=== PATIENT | male | born 1965 | race Caucasian/White ===

== ENCOUNTER 2019-01-01 17:21 | Emergency (ER) | payer OTHER ==
--- NOTE | 2019-01-01 18:31 | CT ---
HEAD CT NONCONTRAST 01/01/19 INDICATION: Dizziness, 4 months. No prior comparison. FINDINGS: No intracranial hemorrhage, mass effect, midline shift or ventriculomegaly. Mild scattered paranasal sinus mucosal thickening is present, most notable within posterior right eth moid sinus. IMPRESSION: No acute intracranial hemorrhage or mass effect. Paranasal sinus mucosal thickening. POS: RANDY
--- NOTE | 2019-01-05 17:34 | EKG ---
Test Reason : DIZZINESS Blood Pressure : / mmHG Vent. Rate : 054 BPM Atrial Rate : 054 BPM P-R Int : 160 ms QRS Dur : 086 ms QT Int : 404 ms P-R-T Axes : 036 045 039 degrees QTc Int : 383 ms Sinus bradycardia Otherwise normal ECG Confirmed by JUNITO MTZ, PAPA Henriquez ([id number]), graphics editor BENITO GORE ([id number]) on 01/05/2019 5:34:15 PM Referred By: Confirmed By:PAPA WILD MD
== END 2019-01-01 18:57 | disposition home or self-care (01) ==
LOC: ERS 17:21
DX: R42 Dizziness and giddiness (principal); R53.1 Weakness; I10 Essential (primary) hypertension; K21.9 Gastro-esophageal reflux disease without esophagitis; F32.9 Major depressive disorder, single episode, unspecified
CPT/HCPCS: 70450; 93005

== ENCOUNTER 2019-02-21 20:30 | Outpatient (CLI) | payer OTHER | END 2019-02-21 20:31 | disposition home or self-care (01) | LOC: SLEEPLAB 20:30 | PROVIDERS: ATTEND Internal Medicine Pulmonary Disease | DX: G47.61 Periodic limb movement disorder (principal); G47.9 Sleep disorder, unspecified; R06.89 Other abnormalities of breathing; R53.82 Chronic fatigue, unspecified; G31.84 Mild cognitive impairment of uncertain or unknown etiology; E16.2 Hypoglycemia, unspecified; R06.00 Dyspnea, unspecified; R42 Dizziness and giddiness; E66.9 Obesity, unspecified; K21.9 Gastro-esophageal reflux disease without esophagitis; R06.83 Snoring; G47.00 Insomnia, unspecified; F32.9 Major depressive disorder, single episode, unspecified; R35.1 Nocturia; I10 Essential (primary) hypertension; G47.33 Obstructive sleep apnea (adult) (pediatric) | CPT/HCPCS: 95811 ==

== ENCOUNTER 2019-02-25 09:49 | Outpatient (CLI) | payer OTHER ==
[2019-02-25] MEDS ORDERED: Gadobenate Dimeglumine 529 MG/1 ML (20ML VIAL) ONE (10:12)
--- NOTE | 2019-02-25 12:08 | MRI ---
MRI BRAIN WITH AND WITHOUT IV CONTRAST: Date: 02/25/19 HISTORY: Fatigue, brain fog, cognitive problems, dizziness. FINDINGS: Correlation is made with the noncontrasted CT scan of 01/01/19. No restricted diffusion is seen. A few tiny foci of T2 prolongation are seen in the periventricular w bassam matter consistent with mild chronic small vessel ischemic disease. No evidence of infarct, hemor rhage, mass, midline shift, or abnormal extra-axial fluid collections are seen. No abnormal postcontr ast enhancement is noted. There is mucosal disease in the paranasal sinuses. There is fluid in the ma xillary sinuses and small amount of fluid in the mastoid air cells. IMPRESSION: 1. Mild chronic small vessel ischemic disease. 2. No evidence of acute intracranial process or mass. POS: TPC
== END 2019-02-25 09:50 | disposition home or self-care (01) ==
LOC: BICMRI 09:49
PROVIDERS: ATTEND Psychiatry & Neurology Neurology
DX: R53.83 Other fatigue (principal); G93.89 Other specified disorders of brain
CPT/HCPCS: 70553; 82565

== ENCOUNTER 2019-03-01 21:49 | Emergency (ER) | payer OTHER ==
[2019-03-01] MEDS ORDERED: Piperacillin/Tazobactam 4.5 GM VIAL ONE (22:56)
[2019-03-01] MEDS ORDERED: Morphine 4 MG/ML VIAL ONE (22:56)
[2019-03-01 23:14] LABS: #Eosinphils 0.1 thou/uL (0.0-0.7); #Lymphocytes 2.3 thou/uL (1.20-3.40); #Neutrophils 6.7 thou/uL (1.40-6.50); %Basophils 0.4 % (0.0-1.0); %Eosinophils 1.2 % (0.0-10.0); %Lymphocytes 22.5 % (21.0-51.0); %Monocytes 9.5 % (0.0-10.0); %Neutrophils 66.4 % (42.0-75.0); Hemoglobin 14.1 g/dL (14.0-18.0); Mean Corpuscular HGB CONC 33.9 g/dL (32.0-36.0); Mean Corpuscular Hemoglobin 30.4 pg (27.0-31.0); Mean Corpuscular Volume 89.6 fL (78.0-98.0); Mean Platelet Volume 6.9 fL (7.4-10.4); Platelet Count 214 thou/uL (130-400); RBC Distribution Width 12.7 % (11.5-14.5); Red Blood Cell (RBC) Count 4.65 mill/uL (4.70-6.10); White Blood Cell (WBC) Count 10.1 thou/uL (4.8-10.8)
[2019-03-01 23:35] LABS: ALT (SGPT) 19 U/L (8-55); AST (SGOT) 25 U/L (5-34); Albumin 3.8 g/dL (3.5-5.0); Alkaline Phosphatase 203 U/L (40-150); Anion Gap 14 mmol/L (10-20); BUN (Urea Nitrogen) 15 mg/dL (8.4-25.7); Bilirubin, Total 1.6 mg/dL (0.2-1.2); Calc. Creatinine Clearance 0 mL/min (70-130); Calcium 9.1 mg/dL (7.8-10.44); Carbon Dioxide 25 mmol/L (22-29); Chloride 101 mmol/L (98-107); Estimated GFR-MDRD 50; Glucose 227 mg/dL (70-105); Potassium 3.2 mmol/L (3.5-5.1); Protein, Total 7.8 g/dL (6.0-8.3); Sodium 137 mmol/L (136-145)
[2019-03-02] MEDS ORDERED: Lidocaine 1% (PF) 30 ML VIAL ONE (00:05)
[2019-03-02] MEDS ORDERED: Clindamycin/D5W 900 mg/50 ml Premix Bag ONE (01:17)
[2019-03-02] MEDS ORDERED: HYDROcodone/Acetaminophen 5/325 mg Tablet ONE (01:17)
== END 2019-03-02 02:38 | disposition home or self-care (01) ==
LOC: ERS 21:49
DX: L02.212 Cutaneous abscess of back [any part, except buttock and flank] (principal); I10 Essential (primary) hypertension; E78.00 Pure hypercholesterolemia, unspecified; K21.9 Gastro-esophageal reflux disease without esophagitis; Z79.899 Other long term (current) drug therapy
CPT/HCPCS: 10061; 36415; 80053; 83605; 85025; 87040; 96365; 96366; 96367; 96368; 96375; J2001; J2270; J2543; J3370; J3490

== ENCOUNTER 2019-03-26 16:16 | Observation (INO) | payer OTHER ==
[2019-03-26 16:52] LABS: #Lymphocytes 1.7 thou/uL (1.20-3.40); #Monocytes 0.5 thou/uL (0.11-0.59); #Neutrophils 5.9 thou/uL (1.40-6.50); %Basophils 0.2 % (0.0-1.0); %Eosinophils 0.3 % (0.0-10.0); %Lymphocytes 20.4 % (21.0-51.0); %Monocytes 5.7 % (0.0-10.0); %Neutrophils 73.4 % (42.0-75.0); Hemoglobin 13.5 g/dL (14.0-18.0); Mean Corpuscular HGB CONC 34.1 g/dL (32.0-36.0); Mean Corpuscular Hemoglobin 30.4 pg (27.0-31.0); Mean Corpuscular Volume 89.2 fL (78.0-98.0); Mean Platelet Volume 7.2 fL (7.4-10.4); Platelet Count 269 thou/uL (130-400); RBC Distribution Width 12.5 % (11.5-14.5); Red Blood Cell (RBC) Count 4.43 mill/uL (4.70-6.10); White Blood Cell (WBC) Count 8.1 thou/uL (4.8-10.8)
[2019-03-26 17:19] LABS: ALT (SGPT) 40 U/L (8-55); AST (SGOT) 34 U/L (5-34); Alkaline Phosphatase 238 U/L (40-150); Anion Gap 13 mmol/L (10-20); BUN (Urea Nitrogen) 46 mg/dL (8.4-25.7); Bilirubin, Total 0.6 mg/dL (0.2-1.2); Calc. Creatinine Clearance 0 mL/min (70-130); Calcium 9.7 mg/dL (7.8-10.44); Carbon Dioxide 16 mmol/L (22-29); Chloride 111 mmol/L (98-107); Estimated GFR-MDRD 32; Globulin 4.3 g/dL (2.4-3.5); Glucose 180 mg/dL (70-105); Potassium 5.3 mmol/L (3.5-5.1); Protein, Total 8.3 g/dL (6.0-8.3); Sodium 135 mmol/L (136-145)
[2019-03-26] MEDS ORDERED: Ondansetron PF 4 MG/2 ML Vial ONE (17:19)
[2019-03-26] MEDS ORDERED: Sodium Bicarbonate 150 MEQ in Dextrose 5% in Water 1,000 ML IV ONE (18:00)
[2019-03-26] MEDS ORDERED: Atorvastatin Calcium 40 MG TAB PO SCH (21:00)
[2019-03-26 21:04] VITALS: BMI 33.7
[2019-03-26] MEDS ORDERED: Acetaminophen 325 MG TAB PO PRN (21:07)
[2019-03-26] MEDS ORDERED: Acetaminophen 650 MG Suppository PR PRN (21:07)
[2019-03-26] MEDS ORDERED: Temazepam 15 MG CAP PO PRN (21:07)
[2019-03-26] MEDS ORDERED: Ondansetron PF 4 MG/2 ML Vial IVP PRN (21:07)
[2019-03-26] MEDS ORDERED: Ondansetron ODT 4 MG TAB PO PRN (21:07)
[2019-03-26] MEDS ORDERED: Senokot S 8.6-50 MG TAB PO PRN (21:07)
[2019-03-26] MEDS ORDERED: Guaifenesin DM 100-10/5 ML UDCUP PO PRN (21:07)
[2019-03-26 21:44] LABS: Potassium 5.3 mmol/L (3.5-5.1)
[2019-03-26] MEDS: Heparin 5,000 UNITS/ML VIAL SC SCH (21:55)
--- NOTE | 2019-03-26 23:27 | ULT ---
Renal ultrasound: 03/26/2019 COMPARISON: None HISTORY: Frequent urination, flank tenderness, assess for hydronephrosis and TECHNIQUE: Multiplanar grayscale sonographic imaging of the kidneys and urinary bladder obtained. FINDINGS: Right kidney measures 10.5 cm in craniocaudal dimension and left kidney measures 10.6 cm in craniocaudal dimension. No renal mass, hydronephrosis, or renal stone noted on either side. Urinary bladder appears grossly unremarkable. IMPRESSION: No hydronephrosis.
--- NOTE | 2019-03-27 01:58 | HP ---
PRIMARY CARE PHYSICIAN: Mani Torres MD CHIEF COMPLAINT: Hyperkalemia. HISTORY OF PRESENT ILLNESS: This is a 53-year-old white male with a 6-month history of some nonspecific symptoms of dizziness, feeling groggy, having trouble speaking after a bronchitis episode. He has had negative workups with MRI. He also had some abdominal pain for a while and had a negative colonoscopy and started on PPIs with improvement in that. The patient then had an infected cyst on the back of his neck most recently and had that drained and then put on two courses of Bactrim before having the cyst cavity removed by Dr. Bernstein. The patient reports that he has been feeling very fatigued over the last few weeks. He went in to see the PA at Dr. Torres's office and had lab work done that was concerning for a possible rheumatologic problem. The patient was referred to Dr. Olivera. He was also noted to have some elevated renal function testing and so he was sent to Dr. Britt. The patient saw Dr. Olivera yesterday and was told to go and see Dr. Britt today. He was started on prednisone yesterday. Today, he went to Dr. Britt's office. There, he was noted to have a potassium of 6.2, and so he was sent emergently to the emergency room. In the ER here, his potassium was 5.3, creatinine was up to 2.19. Dr. Britt was notified and asked to have the patient admitted along with giving him Kayexalate and dextrose solution with sodium bicarbonate. The patient has also had some nausea on and off for the last few days to weeks and some vomiting intermittently, most recently yesterday morning. The patient's other notable symptoms are for the last few weeks, the patient has been having migratory arthralgias especially in his hands, but also in the other joints throughout his body. PAST MEDICAL HISTORY: 1. Hypertension. 2. Hyperlipidemia. 3. Gastroesophageal reflux disease. PAST SURGICAL HISTORY: Cyst removal in the back of his neck. PSYCHIATRIC HISTORY: Depression. SOCIAL HISTORY: The patient used to abuse alcohol, quit in May 13, 2018. He was a previous smoker, quit 6 months ago when he started getting sick. He smoked half pack of cigarettes per day. The patient did use methamphetamines and weed when he was much younger, but nothing in the recent years. He is . FAMILY HISTORY: Mother had Guillain-Pierce syndrome, emphysema, and breast cancer. Sister had breast cancer. Dad had a CABG and valve replacement at 75 years old and brother had non-Hodgkin's lymphoma. ALLERGIES: NO KNOWN DRUG ALLERGIES. CURRENT MEDICATIONS: 1. Lisinopril 20 mg daily. 2. Atorvastatin 40 mg daily. 3. Restoril 30 mg at night. 4. Omeprazole 40 mg daily as needed. 5. Prednisone 10 mg daily, started yesterday. REVIEW OF SYSTEMS: CONSTITUTIONAL: No fevers, no chills. He has had generalized fatigue and a heavy feeling in his head. EYES: No double vision or blurred vision. ENT: He has had some continuous drainage and congestion for the last 6 months, some intermittent pain in the lymph nodes of his neck, but no sore throat anteriorly. CARDIOVASCULAR: No chest pain. No palpitations or racing heart. PULMONARY: No recent coughing, wheezing, or shortness of breath. GASTROINTESTINAL: The patient does have some difficulty swallowing, though it seems to be more that he constantly has post nasal drainage and is constantly trying to swallow throughout the day, but he is able to eat normally. No current abdominal pain, nausea, or vomiting as per HPI. No diarrhea or constipation. GENITOURINARY: No dysuria or hematuria. No changes to his urine character. MUSCULOSKELETAL: See HPI. SKIN: The patient has had some scattered red papules on his trunk and his extremities for the last couple of weeks. It has been since he was on the Bactrim course for a long period of time. NEUROLOGIC: No numbness, tingling, or focal weakness, but he did have the dizziness and heavy feeling in his head, sometimes trouble concentrating and trouble speaking clearly, though he has not had any trouble right now. PHYSICAL EXAMINATION: VITAL SIGNS: Blood pressure 145/68, pulse 72, respirations 18, temperature 98.5 , O2 saturation 96% on room air. GENERAL: This is a well-developed, well-nourished white male, in no acute distress. HEENT: Pupils equal, round, and reactive to light. Oropharynx is clear without lesions, erythema, or exudate. NECK: Supple. No lymphadenopathy. No thyroid nodules or enlargement. No JVD. HEART: Regular rate and rhythm. No murmurs, rubs, or gallops. LUNGS: Clear to auscultation bilaterally. No wheezes, crackles, or rhonchi. ABDOMEN: Soft, nontender to palpation. Normoactive bowel sounds. No hepatosplenomegaly or other masses. EXTREMITIES: No clubbing, cyanosis, or edema. The patient does state he used to have some edema, but he was given some fluid pills at some point that has resolved that. SKIN: The patient has a scattered red papular rash, very sparse, mostly on his trunk, not excoriated or itching, nontender to palpation. NEUROLOGIC: Intact strength and sensation in all extremities. No facial droop. PSYCHIATRIC: Alert oriented x3. Normal mood and affect. LABORATORY DATA: CBC with a hemoglobin 13.5, hematocrit 39.5, the rest was normal. Complete metabolic panel was notable for a sodium of 135, potassium 5.3, chloride is 111, carbon dioxide is 16, BUN is 46, creatinine is 2.19, it was 2.35 on the 2nd of this month and it was 1.48 at the end of last month; glucose of 180, alkaline phosphatase of 238. The rest of his CMP was normal. EKG done in the emergency room showed normal sinus rhythm at 70 beats per minute without any T-wave peaking or other abnormalities. ASSESSMENT: 1. Acute worsening of renal failure with hyperkalemia. The patient has received Kayexalate and bicarbonate here in the emergency room. He is not having any symptoms currently from the hyperkalemia and his EKG shows no changes. We will put the patient on observation, on telemetry. He had Dr. Britt in consult and we will recheck potassium in the morning. I expect it will most likely be back down to normal. We will defer to Dr. Britt for further workup for his renal failure. I suspect that there may be an autoimmune condition going on versus a reaction to the prolonged Bactrim course. 2. Hypertension. We will hold the patient's lisinopril due to hyperkalemia and worsening renal failure. We will monitor closely and start other antihypertensives as needed. 3. Hyperlipidemia. We will resume the patient's atorvastatin. 4. Gastroesophageal reflux disease. We will resume the patient's proton pump inhibitor. 5. Deep venous thrombosis prophylaxis. We will put the patient on heparin subcu and SCDs while in bed. 6. Code status. I did discuss this with the patient. He states he is a full code. Should he be incapacitated, his medical decision maker would be his , Jaida Jimenez as well his sister, Shira Centeno. Job ID: [id number] MTDD
[2019-03-27 06:21] LABS: #Basophils 0.1 thou/uL (0.0-0.2); #Eosinphils 0.2 thou/uL (0.0-0.7); #Lymphocytes 3.3 thou/uL (1.20-3.40); #Monocytes 1.1 thou/uL (0.11-0.59); #Neutrophils 5.7 thou/uL (1.40-6.50); %Basophils 0.9 % (0.0-1.0); %Eosinophils 1.8 % (0.0-10.0); %Lymphocytes 32.3 % (21.0-51.0); %Monocytes 10.2 % (0.0-10.0); %Neutrophils 54.8 % (42.0-75.0); Hemoglobin 12.4 g/dL (14.0-18.0); Mean Corpuscular HGB CONC 33.2 g/dL (32.0-36.0); Mean Corpuscular Volume 90.3 fL (78.0-98.0); Mean Platelet Volume 7.2 fL (7.4-10.4); Platelet Count 242 thou/uL (130-400); RBC Distribution Width 12.4 % (11.5-14.5); Red Blood Cell (RBC) Count 4.14 mill/uL (4.70-6.10); White Blood Cell (WBC) Count 10.3 thou/uL (4.8-10.8)
[2019-03-27 06:50] LABS: Anion Gap 14 mmol/L (10-20); BUN (Urea Nitrogen) 44 mg/dL (8.4-25.7); Calc. Creatinine Clearance 59 mL/min (70-130); Calcium 9.3 mg/dL (7.8-10.44); Carbon Dioxide 20 mmol/L (22-29); Chloride 109 mmol/L (98-107); Estimated GFR-MDRD 32; Glucose 103 mg/dL (70-105); Potassium 4.5 mmol/L (3.5-5.1); Sodium 138 mmol/L (136-145)
[2019-03-27] MEDS ORDERED: predniSONE 20 MG TAB PO SCH (08:00)
[2019-03-27] MEDS: Heparin 5,000 UNITS/ML VIAL SC SCH (08:26)
--- NOTE | 2019-03-27 09:31 | CON ---
DATE OF CONSULTATION: 03/26/2019 CONSULTATION PHYSICIAN: Dr. Vazquez REASON FOR CONSULT: Acute kidney injury. REASON FOR ADMISSION: Abnormal labs. HISTORY OF PRESENT ILLNESS: A 53-year-old male with history of anxiety, depression, arthritis, hypertension, and hyperlipidemia, came to the hospital with abnormal labs. The patient has been having fatigue and joint pains for few weeks now and has been evaluated by Rheumatology and was found to have hyperkalemia, sent to the hospital. No fever or chills. No nausea or vomiting. No diarrhea reported. The patient does have some shortness of breath and leg swelling, for which he was given diuretics and got better. PAST MEDICAL HISTORY: Positive for anxiety, anemia, depression, hypertension, hyperlipidemia, and chronic kidney disease. PAST SURGICAL HISTORY: None. HOME MEDICATIONS: Include; 1. Lisinopril 20 mg. 2. Atorvastatin 40 mg. 3. Prilosec. 4. Hydrochlorothiazide 25 mg daily. 5. Temazepam 30 mg capsule at bedtime. 6. Tramadol p.r.n. 7. Zofran. 8. Phenergan. ALLERGIES: NO KNOWN DRUG ALLERGIES. SOCIAL HISTORY: No smoking, alcohol, or illicit drug use. FAMILY HISTORY: No history of kidney disease. REVIEW OF SYSTEMS: CONSTITUTIONAL: Negative for weight loss or gain, ability to conduct usual activities. SKIN: Negative for rash, itching. EYES: Negative for double vision, pain. ENT/MOUTH: Negative for nose bleeding, neck stiffness, pain, tenderness. CARDIOVASCULAR: Negative for palpitations, dyspnea on exertion, orthopnea. RESPIRATORY: Negative for shortness of breath, wheezing, cough, hemoptysis, fever or night sweats. GASTROINTESTINAL: Negative for poor appetite, abdominal pain, heartburn, nausea, vomiting, constipation, or diarrhea. GENITOURINARY: Negative for urgency, frequency, dysuria, nocturia. MUSCULOSKELETAL: Negative for pain, swelling. NEUROLOGIC/PSYCHIATRIC: Negative for anxiety, depression. ALLERGY/IMMUNOLOGIC: Negative for skin rash, bleeding tendency. PHYSICAL EXAMINATION: GENERAL: Reveals a well-built male, in no apparent distress. VITAL SIGNS: Temperature 96, pulse 70, respiratory rate 18, and blood pressure 154/78. HEENT: Atraumatic and normocephalic. Oral mucosa is moist. NECK: Supple. CV: S1 and S2 heard DERMATOLOGY: Skin rash is present. NEUROLOGIC: Alert and awake. PSYCHIATRIC: Normal mood and affect. LABORATORY DATA: Hemoglobin is 7.5, potassium is 5.3, BUN is 46, and creatinine is 2.1. ASSESSMENT AND PLAN: 1. Acute kidney injury, most likely elevated creatinine from Bactrim use. Agree with holding Bactrim and hydration. 2. Hyperkalemia, most likely from acidosis and Bactrim use. Hold Bactrim and continue bicarb. 3. Metabolic acidosis. Continue bicarb. 4. Mild hyponatremia. 5. Elevated alkaline phosphatase. 6. Mild anemia. 7. History of hypertension, stable. PLAN: To continue on IV fluids. Check renal ultrasound. Continue bicarb drip and monitor renal function closely. Avoid Bactrim and nephrotoxins and we will follow. Thank you for the consult Job ID: [id number]
[2019-03-27 15:36] VITALS: TEMP 98.3
--- NOTE | 2019-03-27 15:48 | PRG ---
DATE OF SERVICE: 03/27/2019 SUBJECTIVE: Patient was seen and examined at bedside and overnight events noted. Patient denies any shortness of breath or chest pain or palpitation. No history of nausea or vomiting or diarrhea or fever or chills or cramps. OBJECTIVE: GENERAL: This is a well-built male, in no apparent distress. VITAL SIGNS: Temperature 98.7. Heart rate 60. Respiratory rate 20. Blood pressure 107/58. HEENT: Atraumatic, normocephalic. Oral mucosa is moist NECK: Supple. CARDIOVASCULAR: S1, S2 heard. Rate and rhythm regular. RESPIRATORY: Clear to auscultation. GASTROINTESTINAL: Abdomen is soft. MUSCULOSKELETAL: No tenderness. No edema. DERMATOLOGIC: No skin rash. NEUROLOGIC: Alert and awake and oriented X3. No focal neurologic deficits. Moving all the extremities. PSYCHIATRIC: Mood and affect normal. LABORATORY DATA: Potassium 4.5, BUN is 44, creatinine is 2.1. ASSESSMENT AND PLAN: 1. Chronic kidney disease stage 3, stable. 2. Acute kidney injury, better. 3. Hyperkalemia, better. 4. Metabolic acidosis. 5. Mild anemia. 6. History of hypertension, stable. Labs are better. We will follow. Job ID: [id number]
[2019-03-27] MEDS: Sodium Chloride 0.9% 500 ML IV SCH ×2 (16:38→16:47)
[2019-03-27 18:35] VITALS: BP 139/74
--- NOTE | 2019-03-27 20:09 | DIS ---
DATE OF ADMISSION: 03/26/2019 DATE OF DISCHARGE: 03/27/2019 DISCHARGE DISPOSITION: Home. DISCHARGE INSTRUCTIONS: 1. Follow up with primary care physician, Dr. Sharda Joens in 1 week. 2. Follow up with Dr. Jose Britt in 2 to 3 days. 3. The patient was advised to follow up with primary pulmonologist, Dr. Olivera. 4. The patient was advised to discontinue Bactrim. 5. Repeat basic metabolic profile in 2 to 3 days is recommended. 6. Primary care physician advised to follow. DISCHARGE MEDICATIONS: 1. Amlodipine 5 mg daily. 2. Clonidine as needed. 3. Lisinopril has been discontinued. 4. All other home medications were left unchanged. The patient was seen and examined on the day of discharge. Denies any new complaints. No chest pain, shortness of breath, or palpitations reported. BRIEF HOSPITAL COURSE: The patient is a 53-year-old male with chronic kidney disease, hypertension, and recent infected cyst on his neck, status post I and D, currently on Bactrim, presented to the hospital with abnormal labs. He was found to have a creatinine of 2.32 with potassium of 6.2. Please refer to the history and physical for further details. The patient was admitted to the telemetry unit with a diagnosis of hyperkalemia. He was started on IV fluids along with Kayexalate. His potassium improved to 4.5. His creatinine improved to 2.16 with BUN of 44. Renal ultrasound was negative for obstructive uropathy. Right kidney measured 10.5 cm and left kidney measured 10.6 cm without any renal mass, hydronephrosis, or stone. Bladder was unremarkable. The patient was advised to discontinue Bactrim as well as lisinopril. He will benefit from a repeat labs in 2 to 3 days. He has been cleared by Nephrology for discharge. FINAL DIAGNOSES: 1. Hyperkalemia, probably secondary to IRENE inhibitor/Bactrim. 2. Metabolic acidosis, secondary to renal failure, improving. 3. Acute kidney injury on chronic kidney disease, stage 3. 4. Hyponatremia. 5. Hypertension. 6. Hyperlipidemia. 7. Gastroesophageal reflux disease. 8. Recent infected cyst on back of his neck. 9. Obesity with a BMI of 33.8. 10. Chronic anemia, probably secondary to renal insufficiency. 11. Abnormal rheumatoid factor as well as elevated inflammatory markers. The patient has been started on prednisone recently by Rheumatology, Dr. Olivera. The patient was advised to follow up with Rheumatology as an outpatient. PLAN: Plan of care was discussed with the patient in detail. He stated understanding. Job ID: [id number]
--- NOTE | 2019-03-30 10:31 | EKG ---
Test Reason : Blood Pressure : / mmHG Vent. Rate : 070 BPM Atrial Rate : 070 BPM P-R Int : 130 ms QRS Dur : 082 ms QT Int : 346 ms P-R-T Axes : 055 064 028 degrees QTc Int : 373 ms Normal sinus rhythm Normal ECG Confirmed by DEIRDRE RIVERA ([id number]), assistant film editor ANNA MARIE PERES ([id number]) on 03/30/2019 10:31:30 AM Referred By: NICOLE Confirmed By:DEIRDRE RIVERA
== END 2019-03-27 19:42 | disposition home or self-care (01) ==
LOC: ERS 16:16 → 2SW 18:00
PROVIDERS: ADMIT Emergency Medicine; ATTEND Emergency Medicine
DX: E87.5 Hyperkalemia (principal); I12.9 Hypertensive chronic kidney disease with stage 1 through stage 4 chronic kidney disease, or unspecified chronic kidney disease; N18.3 Chronic kidney disease, stage 3 (moderate); N17.9 Acute kidney failure, unspecified; D63.1 Anemia in chronic kidney disease; E87.2 Acidosis; E78.5 Hyperlipidemia, unspecified; K21.9 Gastro-esophageal reflux disease without esophagitis; F32.9 Major depressive disorder, single episode, unspecified; F10.11 Alcohol abuse, in remission; F41.9 Anxiety disorder, unspecified; E87.1 Hypo-osmolality and hyponatremia; E66.9 Obesity, unspecified; Z68.33 Body mass index [BMI] 33.0-33.9, adult; Z87.891 Personal history of nicotine dependence; Z79.52 Long term (current) use of systemic steroids; Z79.899 Other long term (current) drug therapy
CPT/HCPCS: 36415; 76770; 80053; 85025; 93005; 96361; 96365; 96366; 96375; G0378; J1644; J2405; J7070; J7512

== ENCOUNTER 2019-05-06 07:21 | Outpatient (CLI) | payer OTHER ==
[2019-05-06] MEDS ORDERED: Regadenoson 0.4 MG/5 ML SYRINGE ONE (11:11)
--- NOTE | 2019-05-06 12:09 | NM ---
CARDIAC SPECT: HISTORY: A 53-year-old male with chest pain, hypertension, dyslipidemia, dyspnea, palpitations. TECHNIQUE: A myocardial perfusion scan was performed using the single-isotope 1-day protocol with Technetium 99m sestamibi. Eleven mCi were injected intravenously for the rest exam followed by 30 mCi for the stre ss study. Pharmacologic stress with LexiScan is monitored and interpreted by Dr. Huff. FINDINGS: Homogeneous tracer distribution is seen in the myocardial segments on stress and rest images without fixed or reversible defects. GATED SPECT LVEF: 73%. WALL MOTION EXAM: Normal. IMPRESSION: Normal myocardial perfusion scan. POS: OFF
== END 2019-05-06 07:22 | disposition home or self-care (01) ==
LOC: NM 07:21
PROVIDERS: ATTEND Internal Medicine Cardiovascular Disease
DX: R06.09 Other forms of dyspnea (principal)
CPT/HCPCS: 78452; 93017; A9500; J2785

== ENCOUNTER 2019-05-13 12:17 | Outpatient (CLI) | payer OTHER | END 2019-05-13 12:18 | disposition home or self-care (01) | LOC: ULT 12:17 | PROVIDERS: ATTEND Internal Medicine Cardiovascular Disease | DX: R06.09 Other forms of dyspnea (principal); I08.3 Combined rheumatic disorders of mitral, aortic and tricuspid valves | CPT/HCPCS: 93306 ==